=== PATIENT | male | born 1995 | race Caucasian/White ===

== ENCOUNTER 2025-07-05 09:21 | Outpatient (CLI) | payer BC, SELFPAY ==
[2025-07-05 10:03] LABS: PCR FLU A POSITIVE PCR FLU A (Negative); PCR FLU B Negative PCR FLU B (Negative); SARS PCR* Negative SARS-CoV-2 (Negative)
== END 2025-07-05 09:22 | disposition home or self-care (01) ==
LOC: NFLDUCREF 09:21
PROVIDERS: Visit Provider Physician Assistant Surgical
DX: R68.89 Other general symptoms and signs (principal)
CPT/HCPCS: 87636